=== PATIENT | female | born 1975 | race Two or more races ===

== ENCOUNTER → 2017-07-09 | Outpatient (CLI) | payer BC ==
--- NOTE | 2017-07-09 13:13 | RAD ---
DATE: 07/09/2017 EXAM: DIGITAL SCREEN BILAT W/CAD HISTORY: Screening COMPARISON: None. This is a baseline study. This study was interpreted with the benefit of Computerized Aided Detection (CAD). FINDINGS: Breast Density: HETERO The breast parenchyma Is heterogeneiously dense, which could reduce sensitivity of mammography. Breast parenchyma level C. In the right breast, on the cc view, there is a nodular opacity just medial to the plane of the nipple. No corresponding finding is seen on the MLO view. Finding likely reflects summation artifact but a coned compression view and rolled cc views are advised. Similarly in the left breast, on the MLO view there is an area of increased density again probably reflecting summation artifact. A coned compression view and an ML view are suggested. IMPRESSION: Areas of increased density in the breast as described. Additional imaging advised as outlined above BI-RADS CATEGORY: 0 INCOMPLETE: NEED ADDITIONAL IMAGING EVAULATION AND/OR PRIOR MAMMOGRAMS FOR COMPARISON RECOMMENDED FOLLOW-UP: ADD ADDITIONAL IMAGING PQRS compliance statement: Patient information was entered into a reminder system with a target due date soon for the next mammogram. Mammography is a sensitive method for finding small breast cancers, but it does not detect them all and is not a substitute for careful clinical examination. A negative mammogram does not negate a clinically suspicious finding and should not result in delay in biopsying a clinically suspicious abnormality. "Our facility is accredited by the [employer] Mammography [employer]."
== END | disposition home or self-care (01) ==
LOC: MAMMO 11:55
PROVIDERS: ATTEND Internal Medicine
DX: Z12.31 Encounter for screening mammogram for malignant neoplasm of breast (principal)
CPT/HCPCS: G0202; 77067

== ENCOUNTER → 2017-07-14 | Outpatient (CLI) | payer BC ==
--- NOTE | 2017-07-14 10:31 | RAD ---
DATE: 07/14/2017 EXAM: DIGITAL DIAGNOSTIC BILATERAL HISTORY: Possible abnormality seen on screening COMPARISON: Screening examination 07/09/2017 This study was interpreted with the benefit of Computerized Aided Detection (CAD). FINDINGS: Breast Density: HETERO The breast parenchyma Is heterogeneiously dense, which could reduce sensitivity of mammography. Breast parenchyma level C. In the right breast additional imaging including cone compression CC imaging and rolled cc views were obtained. On the additional images no nodular opacity or abnormality is seen in the finding on screening is most compatible with summation artifact. In the left breast additional images included coned compression MLO views and an ML view. Similarly no abnormality is seen on the additional images and the findings in the left breast, again, most compatible with summation artifact. Follow-up bilateral mammography is suggested in 6 months to further document the absence of pathology and stability. IMPRESSION: Probable benign findings. Probable summation artifact as outlined above. Follow-up bilateral mammography suggested in 6 months to further document stability BI-RADS CATEGORY: 3 PROBABLE BENIGN FINDING(S-SHORT INTERVAL FOLLOW-UP SUGGESTED RECOMMENDED FOLLOW-UP: 6M 6 MONTH FOLLOW-UP PQRS compliance statement: Patient information was entered into a reminder system with a target due date 01/11/2018 for the next mammogram. Mammography is a sensitive method for finding small breast cancers, but it does not detect them all and is not a substitute for careful clinical examination. A negative mammogram does not negate a clinically suspicious finding and should not result in delay in biopsying a clinically suspicious abnormality. "Our facility is accredited by the [employer] Mammography Program."
== END | disposition home or self-care (01) ==
LOC: MAMMO 09:26
PROVIDERS: ATTEND Internal Medicine
DX: R92.8 Other abnormal and inconclusive findings on diagnostic imaging of breast (principal)
CPT/HCPCS: G0204; 77066

== ENCOUNTER → 2017-08-21 | Outpatient (CLI) | payer BC ==
--- NOTE | 2017-08-21 14:21 | RAD ---
Indication pain in the outer aspects of both breasts. Targeted ultrasound to the outer aspects of both breasts was performed. In addition to images provided by the technologist a real-time examination was performed by me. Note is made that the patient had a screening mammographic examination of the breasts 07/09/2017 and diagnostic imaging 07/14/2017. No abnormality is seen in the areas examined in either breast. IMPRESSION: Normal targeted ultrasound evaluation of the breasts BI-RADS 2. Benign findings on ultrasound
== END | disposition home or self-care (01) ==
LOC: MAMMO 12:42
PROVIDERS: ATTEND Internal Medicine
DX: N64.4 Mastodynia (principal)
CPT/HCPCS: 76641

== ENCOUNTER → 2017-08-26 | Outpatient (CLI) | payer BC ==
--- NOTE | 2017-08-26 18:26 | EEG ---
DATE OF SERVICE: 08/26/2017 ELECTROENCEPHALOGRAM NUMBER: [id number]. OBJECTIVE: This is a 42-year-old female patient with complaints of cognitive function impairment and memory concerns. EEG was requested to evaluate cerebral activity and help rule out seizure. METHODS: Twenty electrodes were applied according to the international 10-20 electrode placement system. EKG monitoring, hyperventilation, intermittent photic stimulation, monopolar and bipolar montages are routinely utilized. The record was obtained on a digital system with video monitoring. FINDINGS: 1. Background: The patient was recorded mainly in the awake and drowsy states. No actual sleep state was recorded. The overall background amplitude is 10-30 microvolts. A posterior dominant rhythm of 8-10 Hz is observed. 2. Abnormalities: No specific epileptiform discharge or electrographic seizure is seen. No focal or diffuse slowing. 3. Activation: Hyperventilation was performed with good efforts and normal response. Intermittent photic stimulation was performed with photic driving. No specific epileptiform discharge or electrographic seizure induced. Photoparoxysmal response noted. IMPRESSION: This electroencephalogram is within the broad normal range of the study for the awake and drowsy states. No actual sleep state was recorded. No focal, lateralizing, specific epileptiform discharge, or electrographic seizure is seen. Photoparoxysmal response noted. TAMERA GAXIOLA MD DR: OLENA/claude JOB#: [id number] / [id number] CODY
== END | disposition home or self-care (01) ==
LOC: RT 09:33
PROVIDERS: ATTEND Psychiatry & Neurology Neurology
DX: G31.84 Mild cognitive impairment of uncertain or unknown etiology (principal); R06.4 Hyperventilation
CPT/HCPCS: 95816

== ENCOUNTER → 2018-01-29 | Outpatient (CLI) | payer BC ==
[2018-01-29] MEDS: GADOBUTROL 7.5 MMOL/7.5 ML VIAL IV (16:01)
== END | disposition home or self-care (01) ==
LOC: MRI 15:09
DX: J32.9 Chronic sinusitis, unspecified (principal); H70.893 Other mastoiditis and related conditions, bilateral; R47.9 Unspecified speech disturbances
CPT/HCPCS: 70553; A9585

== ENCOUNTER → 2021-03-12 | Outpatient (CLI) | payer BC ==
--- NOTE | 2021-03-12 07:58 | RAD ---
EXAMINATION: US PELVIS COMPLETE INDICATION: Reason: PELVIC PAIN / Spl. Instructions: / History: COMPARISON: None TECHNIQUE: Transabdominal ultrasound of the pelvis was performed with grayscale, spectral, and color doppler imaging. FINDINGS: UTERUS: Hysterectomy. RIGHT OVARY/ADNEXA: Measures: 3.6 x 2.7 x 2.2 cm Right Ovarian Morphology: There is a 1.6 cm benign-appearing cyst. Right Ovarian Color And Spectral Doppler Flow: Normal LEFT OVARY/ADNEXA: Measures:2.8 x 1.7 x 1.8 cm Left Ovarian Morphology: Grossly unremarkable Left Ovarian Color And Spectral Doppler Flow: Normal OTHER: Fluid/Cul-De-Sac: No pelvic free fluid. IMPRESSION: Simple 1.6 cm right ovarian cyst. Electronically signed by: Jon Dietrich MD (03/12/2021 7:55 AM) [id number]
== END ==
LOC: US 06:47
PROVIDERS: ATTEND Obstetrics & Gynecology
DX: N83.291 Other ovarian cyst, right side (principal)
CPT/HCPCS: 76856